=== PATIENT | female | born 1975 | race Caucasian/White ===

== ENCOUNTER 2020-10-21 09:05 | Inpatient (IN) ==
[2020-10-21 10:34] LABS: Activated Partial Thrombo Time 32.2 seconds (26.0-38.0); INR 1.32 (0.82-1.09)
[2020-10-21 10:42] LABS: ALT 94 U/L (7-52); AST 498 U/L (13-39); Albumin 2.7 g/dL (3.2-5.2); Albumin/Globulin Ratio 0.7 (1-3); Alkaline Phosphatase 881 U/L (34-104); Anion Gap 9 mmol/L (2-11); BUN/Creatinine Ratio 18.6 (8-20); Blood Urea Nitrogen 11 mg/dL (6-24); C Reactive Protein 108.09 mg/L (<8.01); CO2 Carbon Dioxide 22 mmol/L (22-32); Calcium 8.1 mg/dL (8.6-10.3); Chloride 103 mmol/L (101-111); EGFR African American 132.2 (>60); EGFR Non-African American 109.3 (>60); Globulin 4.1 g/dL (2-4); Glucose 107 mg/dL (70-100); Potassium 3.9 mmol/L (3.5-5.0); Sodium 134 mmol/L (135-145); Total Protein 6.8 g/dL (6.4-8.9)
[2020-10-21 10:43] LABS: Troponin I 0.04 ng/mL (<0.03)
[2020-10-21] MEDS ORDERED: Morphine 4 MG/ML VIAL (1 ml) IV ONE ×2 (10:59→12:22)
[2020-10-21 11:00] LABS: Hematocrit 30 % (35-47); Hemoglobin 9.5 g/dL (12.0-16.0); Mean Corpuscular HGB Conc 32 g/dL (31-36); Mean Corpuscular Hemoglobin 25 pg (27-31); Mean Corpuscular Volume 78 fL (80-97); Red Blood Count 3.84 10^6 /uL (3.70-4.87); Red Cell Distribution Width 27 % (10-15); White Blood Count 12.9 10^3/uL (3.5-10.8)
[2020-10-21 11:06] LABS: Polychromasia 2+
[2020-10-21 11:07] LABS: Microcytosis 1+
[2020-10-21 11:08] LABS: Platelet Count 38 10^3/uL (150-450)
[2020-10-21 11:23] LABS: ABS Neutrophils 4.8 10^3/ul (1.5-7.7)
[2020-10-21 11:24] LABS: ABS Basophils 0.1 10^3/ul (0-0.2); ABS Eosinophils 0.5 10^3/ul (0-0.6)
[2020-10-21] MEDS ORDERED: Azithromycin 500 mg/250 ml NS 500 MG/250 ML BAG IVPB ONE (11:24)
[2020-10-21] MEDS ORDERED: cefTRIAXone 1 gm/50 mL NS BAG 1 GM/50 ML BAG IV ONE (11:24)
[2020-10-21] MEDS ORDERED: Iohexol 350 (CONTRAST) 500 ML MDV IV ONE (11:29)
[2020-10-21] MEDS ORDERED: cefTRIAXone 1 gm/50 mL NS BAG 1 GM/50 ML BAG IVPB SCH (11:37)
[2020-10-21 13:03] LABS: Troponin I 0.03 ng/mL (<0.03)
[2020-10-21] MEDS ORDERED: Heparin 5000 UNITS/ML 1 mL VIAL SUBCUT SCH (14:00)
[2020-10-21 14:17] LABS: Immature Retic Fraction 0.74; RBC Retic Count 3.86 10^6/uL (3.70-4.87)
[2020-10-21 14:20] LABS: Corrected Retic Count 3.2 % (0.5-1.5); Hematocrit for Retic CNT 30 % (35-47)
[2020-10-21 14:22] LABS: Fibrinogen 354.5 mg/dL (110.8-404.3)
[2020-10-21 14:27] LABS: Indirect Bilirubin 1.7 mg/dL (0.3-1.0)
[2020-10-21 14:41] LABS: % Iron Saturation 44 % (15-55); Iron 122 ug/dL (50-212); Total Iron Binding Capacity 277 mcg/dL (250-450); Transferrin 198 mg/dL (203-362); Unsaturated Iron Binding < 262 ug/dL
[2020-10-21 15:03] LABS: Ferritin 694.9 ng/mL (11-307)
[2020-10-21 15:07] LABS: Folate 10.21 ng/mL (>3.99); Vitamin B12 > 1450 pg/mL (180-914)
[2020-10-21 15:21] LABS: LDH 4176 U/L (140-271)
[2020-10-21] MEDS: Azithromycin 500 mg/250 ml NS 500 MG/250 ML BAG IVPB SCH (16:36)
[2020-10-21 21:09] LABS: Urine Appearance Cloudy; Urine Bilirubin 1+ (Negative); Urine Blood Negative (Negative); Urine Color Amber; Urine Glucose Negative (Negative); Urine Ketones Negative (Negative); Urine Nitrite Negative (Negative); Urine Protein Negative (Negative); Urine Specific Gravity 1.059 (1.010-1.030); Urine Urobilinogen Positive (Negative)
[2020-10-22 06:20] LABS: Hematocrit 26 % (35-47); Hemoglobin 8.5 g/dL (12.0-16.0); Mean Corpuscular HGB Conc 32 g/dL (31-36); Mean Corpuscular Hemoglobin 25 pg (27-31); Mean Corpuscular Volume 79 fL (80-97); Red Blood Count 3.33 10^6 /uL (3.70-4.87); Red Cell Distribution Width 27 % (10-15); White Blood Count 9.1 10^3/uL (3.5-10.8)
[2020-10-22 06:37] LABS: Albumin 2.4 g/dL (3.2-5.2); Albumin/Globulin Ratio 0.6 (1-3); BUN/Creatinine Ratio 16.1 (8-20); Calcium 7.5 mg/dL (8.6-10.3); EGFR African American 140.4 (>60); Globulin 3.7 g/dL (2-4); Potassium 3.8 mmol/L (3.5-5.0); Total Bilirubin 3.7 mg/dL (0.2-1.0); Total Protein 6.1 g/dL (6.4-8.9)
[2020-10-22 08:52] LABS: ABS Basophils 0.1 10^3/ul (0-0.2); ABS Eosinophils 0.2 10^3/ul (0-0.6); ABS Lymphocytes 3.9 10^3/ul (1.0-4.8); ABS Monocytes 2.2 10^3/ul (0-0.8); ABS Neutrophils 2.6 10^3/ul (1.5-7.7); ABS Nucleated RBC 0.4 10^3/ul; Eosinophil % 2.1 %; Nucleated Red Blood Cells % 4.5
[2020-10-22 08:58] LABS: Polychromasia 1+
[2020-10-22 08:59] LABS: Mean Platelet Volume 8.1 fL (7.4-10.4); Platelet Count 30 10^3/uL (150-450)
[2020-10-22] MEDS: guaiFENesin 100 mg/5 ml LIQ unit dose cup PO PRN ×2 (10:49→19:59)
[2020-10-22] MEDS: cefTRIAXone 1 gm/50 mL NS BAG 1 GM/50 ML BAG IVPB SCH (13:17)
[2020-10-22] MEDS: Azithromycin 500 mg/250 ml NS 500 MG/250 ML BAG IVPB SCH (15:38)
[2020-10-22] MEDS: Albuterol/Ipratropium NEB.SOL (2.5/0.5 MG) 3 ML NEB.SOLN INH PRN (19:06)
[2020-10-22] MEDS ORDERED: Polyethylene Glycol 3350 17 GM PACKET PO PRN (20:08)
[2020-10-22] MEDS ORDERED: Senna TAB 8.6 mg TAB PO PRN (20:08)
[2020-10-22] MEDS ORDERED: Magnesium Hydroxide LIQ 30 ML UDC PO PRN (20:08)
[2020-10-23] MEDS: guaiFENesin 100 mg/5 ml LIQ unit dose cup PO PRN ×3 (00:26→20:07)
[2020-10-23 09:47] LABS: Albumin 2.5 g/dL (3.2-5.2); Albumin/Globulin Ratio 0.6 (1-3); Calcium 7.8 mg/dL (8.6-10.3); EGFR Non-African American 132.2 (>60); Globulin 3.9 g/dL (2-4); Hematocrit 29 % (35-47); Hemoglobin 9.2 g/dL (12.0-16.0); Mean Corpuscular HGB Conc 32 g/dL (31-36); Mean Corpuscular Hemoglobin 25 pg (27-31); Mean Corpuscular Volume 79 fL (80-97); Red Blood Count 3.69 10^6 /uL (3.70-4.87); Red Cell Distribution Width 27 % (10-15); Total Bilirubin 4.4 mg/dL (0.2-1.0); Total Protein 6.4 g/dL (6.4-8.9); White Blood Count 11.9 10^3/uL (3.5-10.8)
[2020-10-23 10:22] LABS: ABS Basophils 0.3 10^3/ul (0-0.2); ABS Eosinophils 0.3 10^3/ul (0-0.6); ABS Lymphocytes 4.4 10^3/ul (1.0-4.8); ABS Monocytes 2.6 10^3/ul (0-0.8); ABS Neutrophils 4.4 10^3/ul (1.5-7.7); ABS Nucleated RBC 0.7 10^3/ul; Eosinophil % 2.5 %; Lymphocyte % 36.9 %; Mean Platelet Volume 8.2 fL (7.4-10.4); Nucleated Red Blood Cells % 5.9; Platelet Count 37 10^3/uL (150-450)
[2020-10-23 10:26] LABS: Polychromasia 1+
[2020-10-23 12:01] LABS: Hepatitis B Surface Antigen Nonreactive (Nonreactive)
[2020-10-23 12:06] LABS: Hepatitis A Ab IgM Negative (Negative)
[2020-10-23 12:07] LABS: Hepatitis B Core IgM Nonreactive (Nonreactive)
[2020-10-23 12:18] LABS: Hepatitis C Antibody Negative (Negative)
[2020-10-23] MEDS: cefTRIAXone 1 gm/50 mL NS BAG 1 GM/50 ML BAG IVPB SCH (13:10)
[2020-10-23] MEDS: Albuterol/Ipratropium NEB.SOL (2.5/0.5 MG) 3 ML NEB.SOLN INH PRN (14:48)
[2020-10-23] MEDS: Azithromycin 500 mg/250 ml NS 500 MG/250 ML BAG IVPB SCH (15:02)
[2020-10-24 07:02] LABS: Hematocrit 28 % (35-47); Hemoglobin 8.7 g/dL (12.0-16.0); Mean Corpuscular HGB Conc 31 g/dL (31-36); Mean Corpuscular Hemoglobin 25 pg (27-31); Mean Corpuscular Volume 80 fL (80-97); Red Blood Count 3.45 10^6 /uL (3.70-4.87); Red Cell Distribution Width 28 % (10-15); White Blood Count 9.6 10^3/uL (3.5-10.8)
[2020-10-24 07:18] LABS: Albumin 2.3 g/dL (3.2-5.2); Albumin/Globulin Ratio 0.6 (1-3); BUN/Creatinine Ratio 18.4 (8-20); Calcium 7.7 mg/dL (8.6-10.3); EGFR African American 163.8 (>60); EGFR Non-African American 135.4 (>60); Globulin 3.6 g/dL (2-4); Potassium 3.8 mmol/L (3.5-5.0); Total Bilirubin 4.4 mg/dL (0.2-1.0); Total Protein 5.9 g/dL (6.4-8.9)
[2020-10-24 07:53] LABS: Polychromasia 1+
[2020-10-24] MEDS: Albuterol/Ipratropium NEB.SOL (2.5/0.5 MG) 3 ML NEB.SOLN INH PRN (07:53)
[2020-10-24 07:54] LABS: ABS Basophils 0.2 10^3/ul (0-0.2); ABS Eosinophils 0.1 10^3/ul (0-0.6); ABS Lymphocytes 4.2 10^3/ul (1.0-4.8); ABS Monocytes 2.4 10^3/ul (0-0.8); ABS Neutrophils 2.8 10^3/ul (1.5-7.7); ABS Nucleated RBC 0.4 10^3/ul; Eosinophil % 1.5 %; Lymphocyte % 43.6 %; Nucleated Red Blood Cells % 4.6
[2020-10-24] MEDS ORDERED: Albuterol HFA INHALER 8 gm MDI INH PRN (07:54)
[2020-10-24 07:55] LABS: Mean Platelet Volume 8.2 fL (7.4-10.4); Platelet Count 30 10^3/uL (150-450)
[2020-10-24] MEDS ORDERED: Lidocaine 2% 10 ML VIAL INJ ONE (10:06)
[2020-10-24] MEDS: cefTRIAXone 1 gm/50 mL NS BAG 1 GM/50 ML BAG IVPB SCH (13:08)
[2020-10-24] MEDS: Azithromycin 500 mg/250 ml NS 500 MG/250 ML BAG IVPB SCH (16:06)
[2020-10-24] MEDS ORDERED: Ondansetron 4 mg VIAL 2 MG/ML 2 ml VIAL IV PRN (17:24)
[2020-10-24] MEDS: guaiFENesin 100 mg/5 ml LIQ unit dose cup PO PRN (20:17)
[2020-10-25] MEDS: guaiFENesin 100 mg/5 ml LIQ unit dose cup PO PRN (05:20)
[2020-10-25] MEDS ORDERED: Midazolam 2 mg/2 ml VIAL 1 mg/ml 2 ml VIAL (2 mg) ONE (06:43)
[2020-10-25] MEDS ORDERED: fentaNYL 100 mcg/2 ml 50 MCG/ML VIAL ONE (06:43)
[2020-10-25 09:39] VITALS: BP 123/56
[2020-10-25 14:43] LABS: Immunoglobulin A 624 mg/dL (61 - 356); Immunoglobulin G 1450 mg/dL (767 - 1590); Immunoglobulin M 380 mg/dL (37 - 286)
[2020-10-25 16:41] LABS: Beta 2 Microglobulin 3.08 mcg/mL
[2020-10-26 14:50] LABS: Albumin 2.1 g/dL (3.4-4.7); Albumin/Globulin Ratio 0.55; Gamma Globulin 2.1 g/dL (0.6-1.6)
[2020-10-27 09:35] LABS: Albumin 2.3 g/dL (3.4-4.7); Albumin/Globulin Ratio 0.57; Total Protein(PEP) 6.3 g/dL (6.3 - 7.9)
[2020-10-31 13:45] LABS: H2BR Fixative Formalin; H2BR Reason for Referral adenocarcinoma; H2BR Tissue ID CN21-27
== END 2020-10-25 12:15 | disposition home or self-care (01) | DRG 579 ==
LOC: ED 09:05 → MED 13:28 → MEDTELE 10-22 14:35
PROVIDERS: ADMIT Internal Medicine; ATTEND Pediatrics

== ENCOUNTER 2020-11-07 13:51 | Inpatient (IN) ==
[~2020-11-07 13:51] MED LIST: Dexamethasone IV 8 MG in Premix IV 0 ML IV SCH; GEMCITABINE IVPB SCH; NS 0.9% IVPB SCH
[2020-11-07 15:45] LABS: Hematocrit 20 % (35-47); Hemoglobin 6.4 g/dL (12.0-16.0); Mean Corpuscular HGB Conc 33 g/dL (31-36); Mean Corpuscular Hemoglobin 27 pg (27-31); Mean Corpuscular Volume 83 fL (80-97); Mean Platelet Volume 11.5 fL (7.4-10.4); Platelet Count 17 10^3/uL (150-450); Red Cell Distribution Width 28 % (10-15)
[2020-11-07 15:52] LABS: Albumin 2.1 g/dL (3.2-5.2); Calcium 6.5 mg/dL (8.6-10.3); Potassium 4.8 mmol/L (3.5-5.0)
[2020-11-07 15:57] LABS: Total Bilirubin 15.5 mg/dL (0.2-1.0)
[2020-11-07 15:58] LABS: Albumin/Globulin Ratio 0.7 (1-3); BUN/Creatinine Ratio 27.6 (8-20); EGFR African American 56.6 (>60); EGFR Non-African American 46.8 (>60); Globulin 3.2 g/dL (2-4); Total Protein 5.3 g/dL (6.4-8.9)
[2020-11-07] MEDS ORDERED: NS 0.9% 1000 ml BAG 1,000 ML IV SCH (16:15)
[2020-11-07 16:45] LABS: Immature Retic Fraction 0.76
[2020-11-07 16:48] LABS: Corrected Retic Count 0.3 % (0.5-1.5); Hematocrit for Retic CNT 20 % (35-47)
[2020-11-07 17:09] LABS: Polychromasia 2+
[2020-11-07] MEDS: Magic MouthWash2-BEN/MAAL/LIDO/NYST 240 ML BTL (alt formulation) SWISH SWAL SCH (23:18)
[2020-11-08 05:33] LABS: INR 2.13 (0.82-1.09)
[2020-11-08 05:38] LABS: ABS Nucleated RBC 4.3 10^3/ul; Nucleated Red Blood Cells % 66.3
[2020-11-08 05:39] LABS: Hematocrit 21 % (35-47); Hemoglobin 7.2 g/dL (12.0-16.0); Mean Corpuscular HGB Conc 35 g/dL (31-36); Mean Corpuscular Hemoglobin 28 pg (27-31); Mean Corpuscular Volume 82 fL (80-97); Mean Platelet Volume 11.5 fL (7.4-10.4); Platelet Count 16 10^3/uL (150-450); Red Blood Count 2.53 10^6 /uL (3.70-4.87); Red Cell Distribution Width 26 % (10-15); White Blood Count 6.5 10^3/uL (3.5-10.8)
[2020-11-08 05:51] LABS: Albumin/Globulin Ratio 0.6 (1-3); BUN/Creatinine Ratio 28.5 (8-20); Calcium 6.7 mg/dL (8.6-10.3); EGFR African American 56.6 (>60); EGFR Non-African American 46.8 (>60); Globulin 3.2 g/dL (2-4); Potassium 4.4 mmol/L (3.5-5.0); Total Protein 5.2 g/dL (6.4-8.9)
[2020-11-08] MEDS ORDERED: diPHENhydraMINE IV 50 MG/ML 1 ml VIAL (BENADRYL) IV ONE (06:00)
[2020-11-08 06:08] LABS: Total Bilirubin 15.4 mg/dL (0.2-1.0)
[2020-11-08] MEDS: Magic MouthWash2-BEN/MAAL/LIDO/NYST 240 ML BTL (alt formulation) SWISH SWAL SCH ×2 (07:36→11:49)
[2020-11-08 08:28] LABS: Polychromasia 1+
[2020-11-08 08:48] LABS: ABS Eosinophils 0.1 10^3/ul (0-0.6)
[2020-11-08 08:49] LABS: ABS Neutrophils 3.1 10^3/ul (1.5-7.7)
[2020-11-08] MEDS: Pantoprazole VIAL 40 MG VIAL IV SCH ×2 (08:49→20:22)
[2020-11-08] MEDS: Senna TAB 8.6 mg TAB PO SCH ×2 (09:33→20:23)
[2020-11-08] MEDS: Albuterol HFA INHALER 8 gm MDI INH PRN ×2 (10:04→16:13)
[2020-11-08] MEDS: guaiFENesin/CODIENE 100mg/10mg 5 ML UDC PO PRN ×2 (15:39→20:22)
[2020-11-09 07:17] LABS: Hematocrit 24 % (35-47); Hemoglobin 8.4 g/dL (12.0-16.0); Mean Corpuscular HGB Conc 35 g/dL (31-36); Mean Corpuscular Hemoglobin 30 pg (27-31); Mean Corpuscular Volume 85 fL (80-97); Mean Platelet Volume 11.9 fL (7.4-10.4); Platelet Count 17 10^3/uL (150-450); Red Blood Count 2.85 10^6 /uL (3.70-4.87); Red Cell Distribution Width 23 % (10-15)
[2020-11-09 07:22] LABS: Albumin/Globulin Ratio 0.7 (1-3); BUN/Creatinine Ratio 23.9 (8-20); Calcium 6.8 mg/dL (8.6-10.3); EGFR African American 79.2 (>60); EGFR Non-African American 65.4 (>60); Globulin 2.9 g/dL (2-4); Potassium 3.8 mmol/L (3.5-5.0); Total Protein 4.9 g/dL (6.4-8.9)
[2020-11-09 07:28] LABS: Total Bilirubin 16.2 mg/dL (0.2-1.0)
[2020-11-09 08:37] LABS: Polychromasia 1+
[2020-11-09 09:21] VITALS: BP 127/48
[2020-11-09] MEDS: Senna TAB 8.6 mg TAB PO SCH (09:24)
[2020-11-09] MEDS: Pantoprazole VIAL 40 MG VIAL IV SCH (09:24)
[2020-11-09] MEDS: guaiFENesin/CODIENE 100mg/10mg 5 ML UDC PO PRN (09:27)
[2020-11-09 13:05] LABS: CA 15-3 86 U/mL (<30)
[2020-11-10 08:48] LABS: Breast Carcinoma Ag(CA27.29) 124 U/mL (<=38.0)
== END 2020-11-09 11:45 | disposition hospice, home (50) | DRG 660 ==
LOC: CHOA 13:51 → MEDTELE 16:14
PROVIDERS: ADMIT Internal Medicine Hematology & Oncology; ATTEND Internal Medicine Hematology & Oncology